=== PATIENT | female | born 1990 | race American Indian/Alaskan Native ===

== ENCOUNTER 2018-08-13 18:55 | Inpatient (IN) | payer MEDICAID ==
--- NOTE | 2018-08-13 21:49 | Ultrasound Report ---
FINAL REPORT PROCEDURE: US OB LIMITED TECHNIQUE: Real-time limited sonographic examination was performed for evaluation of placenta for ea ch fetus with image documentation (1 or more fetuses). CPT 60867 HISTORY: vaginal bleeding; Placenta; r/o abruption COMPARISON: No prior studies are available for comparison. FINDINGS: There is single intrauterine gestation with cephalic presentation. heart rate is 141 beats per minute and regular. Placenta is anterior and right lateral with grade 2 maturation. There is no evide nce of placenta previa. No placental abruption is noted. IMPRESSION: No evidence of placental abruption.
[2018-08-13] MEDS ORDERED: ZOFRAN IV PRN (23:25)
[2018-08-13] MEDS ORDERED: BRETHINE SUB-Q PRN (23:25)
[2018-08-13] MEDS ORDERED: BRETHINE IVP PRN (23:25)
[2018-08-13] MEDS ORDERED: SUBLIMAZE IV PRN (23:25)
[2018-08-13] MEDS ORDERED: PHENERGAN PO PRN (23:25)
[2018-08-13] MEDS ORDERED: MINERAL OIL PO PRN (23:25)
[2018-08-13] MEDS ORDERED: XYLOCAINE 2% INFILTRATI ONE (23:25)
--- NOTE | 2018-08-13 23:25 | History and Physical Report ---
History of Present Illness Date of examination: 08/13/18 Date of admission: 08/13/18 23:05 Chief complaint: Labor History of present illness: Pt is a 27yo BF EDC 08/15/18; EGA 39 5/7 weeks presents to L&D complaining of vaginal bleeding. She received care at [facility] since 14 weeks and course has been unremarkable and GBS is Negative. Past History Past Medical History: no pertinent history Past Surgical History: no surgical history Family/Genetic History: diabetes Social history: no significant social history, single - Obstetrical History Expected Date of Delivery: 08/15/18 Actual Gestation: 39 Week(s) 6 Day(s) : 1 Medications and Allergies Allergies Allergy/AdvReac Type Severity Reaction Status Date / Time No Known Allergies Allergy Unverified 08/13/18 19:29 Home Medications Medication Instructions Recorded Confirmed Last Taken Type Aspirin [Aspirin BABY CHEW TAB] 81 mg PO QDAY 08/13/18 08/13/18 08/13/18 04:45 H istory Vit-Fe Fumar-FA [ 1 tab PO QDAY 08/13/18 08/13/18 08/13/18 04:45 History Vitamin] Review of Systems All systems: negative - Vital Signs Vital signs: Vital Signs Pulse Pulse Ox 83 99 08/13/18 19:29 08/13/18 19:29 Temp Pulse Resp BP Pulse Ox 98.0 F 87 20 129/86 99 08/13/18 19:35 08/13/18 20:59 08/13/18 19:35 08/13/18 20:00 08/13/18 20:59 - Physical Exam Breasts: Positive: deferred Cardiovascular: Regular rate Lungs: Positive: Clear to auscultation Abdomen: Positive: normal appearance Genitourinary (Female): Positive: normal external genitalia Vagina: Positive: normal moisture Uterus: Positive: enlarged Extremities: Positive: normal - Obstetrical FHR: category 1 Uterine Contraction Monitor Mode: External Cervical Dilatation: 2 (per nurse) Cervical Effacement Percentage: 50 (per nurse) station: -3 Uterine Contraction Pattern: Irregular Uterine Tone Measurement Phase: Contraction Uterine Contraction Intensity: Moderate Results Result Diagrams: 08/13/18 21:05 All other labs normal. Ultrasound: report reviewed (No placenta previa) Assessment and Plan - Patient Problems (1) 39 weeks gestation of Onset Date: 08/13/18 Current Visit: Yes Status: Acute Plan to address problem: A: IUP @ 39 5/7 weeks in labor P: Admit to L&D for expectant vaginal delivery
[2018-08-13] MEDS ORDERED: PITOCin/NS 30 UNIT/500ML 30 UNITS/500 ML BAG IV SCH ×2 (23:45)
[2018-08-13] MEDS ORDERED: LACTATED RINGERS 1,000 ML IV SCH (23:45)
[2018-08-13] MEDS ORDERED: PITOCin/NS 20 UNIT/1000ML DRIP 20 UNITS/1,000 ML BAG IV SCH (23:45)
[2018-08-14 00:10] LABS: Hematocrit 35.4 % (30.3-42.9); Mean Corpuscular HGB Conc 34 % (30-34); Mean Corpuscular Volume 96 fl (79-97); Platelet Count 305 K/mm3 (140-440); Red Blood Count 3.71 M/mm3 (3.65-5.03); Red Cell Distribution Width 14.4 % (13.2-15.2)
[2018-08-14] MEDS: STADOL IV PRN ×2 (02:23→05:39)
[2018-08-14] MEDS ORDERED: NACL 0.9% 1000 ML 1,000 ML VG SCH (03:00)
[2018-08-14] MEDS ORDERED: XYLOCAINE 2% INFILTRATI ONE (07:37)
--- NOTE | 2018-08-14 07:52 | Procedure Note ---
OB Delivery Note - Delivery Date of Delivery: 08/14/18 Surgeon: ROBBIE RICO Estimated blood loss: 200cc - Vaginal Delivery presentation: vertex Delivery position: OA Intrapartum events: PROM->1hr before delivery, meconium Delivery induction: none Delivery augmentation: rupture of membranes, pitocin Delivery monitor: external FHT, external uterine Route of delivery: Delivery placenta: spontaneous Delivery cord: 3 umbilical vessels Episiotomy: none Delivery laceration: 2nd degree (perineal) Delivery repair: vicryl Anesthesia: intravenous Delivery comments: delivered OA and placed on Mom's chest for [id number] bonding and delayed cord clamping, cut by Dad - Infant A at 1 minute: 8 at 5 minutes: 9 Infant Gender: Male (3760gms)
[2018-08-14] MEDS ORDERED: NORCO 5/325 PO PRN (09:30)
[2018-08-14] MEDS ORDERED: ZOFRAN IV PRN (09:30)
[2018-08-14] MEDS ORDERED: PHENERGAN PO PRN (09:30)
[2018-08-14] MEDS ORDERED: DERMOPLAST TP PRN (09:30)
[2018-08-14] MEDS ORDERED: BENADRYL PO PRN (09:30)
[2018-08-14] MEDS ORDERED: PITOCin/NS 20 UNIT/1000ML DRIP 20 UNITS/1,000 ML BAG IV SCH (09:30)
[2018-08-14] MEDS ORDERED: LANSINOH TP PRN (09:30)
[2018-08-14] MEDS ORDERED: TUCKS PAD TP PRN (09:30)
[2018-08-14] MEDS ORDERED: TYLENOL PO PRN (09:30)
[2018-08-14] MEDS ORDERED: SODIUM CHLORIDE FLUSH SYRINGE 10 ML IV PRN (10:00)
[2018-08-14] MEDS ORDERED: DULCOLAX PR PRN (10:00)
[2018-08-14] MEDS ORDERED: PHENERGAN PR PRN (10:00)
[2018-08-14] MEDS: IBUPROFEN PO SCH ×3 (12:21→21:48)
[2018-08-14] MEDS: PRENATAL VITAMIN PO SCH (12:22)
[2018-08-14] MEDS: FEOSOL PO SCH ×2 (12:22→21:49)
[2018-08-14] MEDS: COLACE PO SCH ×2 (12:22→21:50)
[2018-08-14 20:31] LABS: Hematocrit 33.5 % (30.3-42.9)
[2018-08-14] MEDS: SENOKOT S PO SCH (21:49)
[2018-08-14] MEDS ORDERED: MILK OF MAGNESIA PO PRN (22:00)
[2018-08-15] MEDS: IBUPROFEN PO SCH ×4 (05:30→23:26)
[2018-08-15] MEDS ORDERED: BOOSTRIX IM ONE (06:00)
[2018-08-15] MEDS ORDERED: M-M-R II VACCINE SUB-Q ONE (11:00)
--- NOTE | 2018-08-15 11:55 | Progress Note ---
Assessment and Plan - Patient Problems (1) 39 weeks gestation of Onset Date: 08/13/18 Current Visit: Yes Status: Resolved (2) (normal spontaneous vaginal delivery) Onset Date: 08/15/18 Current Visit: Yes Status: Resolved Plan to address problem: A: S/P - PPD #1 Doing well Asymptomatic anemia - stable P: May go home tomorrow. Subjective - Subjective Date of service: 08/15/18 Principal diagnosis: s/p - PPD #1 Interval history: Pt is feeling well without complaints. Bleeding improved. Patient reports: appetite normal, voiding normally, pain well controlled, flatus, ambulating normally, no dizzy ambulation, no nauseated [place]: doing well, in NICU Objective - Vital Signs Latest vital signs: Vital Signs Temp Pulse Resp BP BP Pulse Ox 08/15/18 08:40 98.1 F 67 16 98/55 08/15/18 05:30 18 08/14/18 21:48 18 08/14/18 12:35 98.0 F 80 18 116/72 99 Intake and Output 08/14/18 08/15/18 08/15/18 22:59 06:59 14:59 Intake Total 600 Balance 600 Intake: Oral 360 Intake, Free Water 240 Other: Total, Intake Amount 360 # Voids Void 1 - Exam Breasts: Present: deferred Cardiovascular: Present: Regular rate Lungs: Present: Clear to auscultation Abdomen: Present: normal appearance, soft Uterus: Present: normal, firm, fundal height below umbilicus Extremities: Present: normal - Labs Labs: Laboratory Tests 08/13/18 08/13/18 08/13/18 21:05 21:05 21:05 WBC 10.4 RBC 3.71 Hgb 12.0 Hct 35.4 MCV 96 MCH 32 MCHC 34 RDW 14.4 Plt Count 305 RPR Nonreactive Blood Type A POSITIVE Antibody Screen Negative 08/14/18 19:55 WBC RBC Hgb 11.0 Hct 33.5 MCV MCH MCHC RDW Plt Count RPR Blood Type Antibody Screen
[2018-08-15] MEDS: COLACE PO SCH ×2 (12:01→23:26)
[2018-08-15] MEDS: FEOSOL PO SCH ×2 (12:01→23:26)
[2018-08-15] MEDS: PRENATAL VITAMIN PO SCH (12:01)
--- NOTE | 2018-08-15 12:40 | Discharge Summary ---
Providers - Providers Date of Admission: 08/13/18 23:05 Date of discharge: 08/16/18 Attending physician: ROBBIE RICO Primary care physician: ROBBIE RICO Hospitalization Reason for admission: active labor, IUP at term Delivery: Episiotomy: none Laceration: 2nd degree Other procedures: none complications: none Discharge diagnosis: IUP at term delivered [place] baby: male Hospital course: Unremarkable. Condition at discharge: Good Disposition: DC-01 TO HOME OR SELFCARE - Discharge Diagnoses (1) 39 weeks gestation of Status: Resolved (2) (normal spontaneous vaginal delivery) Status: Resolved Plan - Discharge Medications Prescriptions: Ferrous Sulfate [Feosol 325 MG tab] 325 mg PO BID #60 tablet Ibuprofen [Motrin 600 MG tab] 600 mg PO Q6H #30 tablet Vit-Fe Fumar-FA [ Vitamin] 1 each PO QDAY #30 tablet - Provider Discharge Summary Activity: routine, no sex for 6 weeks, no heavy lifting 4 weeks, no strenuous exercise Diet: routine Instructions: routine Additional instructions: [] Smoking cessation referral if applicable(refer to patient education folder for contact #) [] Refer to [facility]'s [facility] Booklet Call your doctor immediately for: * Fever > 100.5 * Heavy vaginal bleeding ( >1 pad per hour) * Severe persistent headache * Shortness of breath * Reddened, hot, painful area to leg or breast * Drainage or odor from incision. * Keep incision clean and dry at all times and follow doctor's instructions regarding bathing/showering - Follow up plan Follow up: ROBBIE RICO MD [Primary Care Provider] - 6 Weeks
[2018-08-15] MEDS ORDERED: AFLURIA QUAD 2018-2019 SYRINGE IM ONE (14:00)
[2018-08-16] MEDS: IBUPROFEN PO SCH ×2 (05:56→11:15)
[2018-08-16] MEDS: SENOKOT S PO SCH ×2 (06:37→11:27)
[2018-08-16] MEDS: FEOSOL PO SCH (10:55)
[2018-08-16] MEDS: COLACE PO SCH (10:55)
[2018-08-16] MEDS: PRENATAL VITAMIN PO SCH (10:55)
[2018-08-17 11:49] VITALS: BP 94/58
== END 2018-08-16 11:00 | disposition home or self-care (01) | DRG 775 ==
LOC: TRG 18:55 → LD 23:05 → TRG 23:05 → OB 08-14 09:25
PROVIDERS: ADMIT Obstetrics & Gynecology; ATTEND Obstetrics & Gynecology
PROC: 10E0XZZ Delivery of Products of Conception, External Approach (ICD-10-PCS; principal; 2018-08-14)
PROC: 0KQM0ZZ Repair Perineum Muscle, Open Approach (ICD-10-PCS; 2018-08-14)
PROC: 3E0234Z Introduction of Serum, Toxoid and Vaccine into Muscle, Percutaneous Approach (ICD-10-PCS; 2018-08-15)
DX: O42.92 Full-term premature rupture of membranes, unspecified as to length of time between rupture and onset of labor (principal); Z3A.39 39 weeks gestation of pregnancy; Z37.0 Single live birth; Z83.3 Family history of diabetes mellitus; O77.0 Labor and delivery complicated by meconium in amniotic fluid; O70.1 Second degree perineal laceration during delivery; O99.02 Anemia complicating childbirth; D64.9 Anemia, unspecified; Z23 Encounter for immunization
CPT/HCPCS: 36415; 76815; 85014; 85018; 85027; 86592; 86850; 86900; 86901; 90471; 90686; 90715; G0378; J0595; J2405; J2590; J7120